=== PATIENT | female | born 1935 | race Caucasian/White ===

== ENCOUNTER 2021-01-12 09:26 | Inpatient (IN) | payer MEDICARE, MEDICAID ==
[~2021-01-12] VITALS: Ht 157.5 cm; Wt 53.5 kg
[2021-01-12] MEDS ORDERED: PIPERACILLIN/TAZOBACTAM 3.375GM/50ML PREMIX IV ONE (10:15)
[2021-01-12 10:27] LABS: HEMATOCRIT. 33.7 % (36.0-48.0); HEMOGLOBIN. 10.7 g/dL (12.0-16.0); MEAN CORPUSCULAR HEMOGLOBIN 25.7 pg (28.0-32.0); MEAN CORPUSCULAR VOLUME 81.3 fL (81.0-99.0); MEAN PLATELET VOLUME 7.2 fl (7.4-10.4); PLATELET 337 x1000/uL (130-400); RED BLOOD CELL COUNT 4.14 mill/uL (4.2-5.4); RED CELL DISTRIBUTION WIDTH 21.5 % (11.6-14.6)
[2021-01-12] MEDS ORDERED: PIPERACILLIN/TAZ 3.375G PREMIX 50 ML IV NR (10:30)
[2021-01-12 10:34] LABS: CHLORIDE 102 mEq/L (98-107)
[2021-01-12 13:57] LABS: PLATELET ESTIMATE NORMAL
[2021-01-12] MEDS ORDERED: [UNRECOGNIZED DRUG - REMARK] XX SCH (16:00)
[2021-01-12] MEDS ORDERED: VANCOMYCIN 1 G PREMIX 200 ML IV NR (17:00)
[2021-01-12] MEDS: PIPERACILLIN/TAZ 3.375G PREMIX 50 ML IV SCH (17:12)
[2021-01-12] MEDS ORDERED: MAGNESIUM/ALUMINUM HYDROXIDE/SIMETHICONE 30ML UDC PO PRN (18:30)
[2021-01-12] MEDS ORDERED: DIPHENHYDRAMINE 50MG/ML VIAL IV PRN (18:30)
[2021-01-12] MEDS ORDERED: CLONIDINE 0.1MG TABLET PO PRN (18:30)
[2021-01-12] MEDS ORDERED: ACETAMINOPHEN 325MG TABLET PO PRN ×2 (18:30)
[2021-01-12] MEDS ORDERED: ZOLPIDEM TARTRATE 5MG TABLET PO PRN (21:00)
[2021-01-12 21:18] LABS: CLARITY URINE CLOUDY (CLEAR); COLOR URINE YELLOW (YELLOW); KETONES URINE NEGATIVE (NEGATIVE); LEUKOCYTE ESTERASE URINE 2+ (NEGATIVE); NITRITE URINE NEGATIVE (NEGATIVE); OCCULT BLOOD URINE 2+ (NEGATIVE); PROTEIN URINE TRACE (NEGATIVE); SPECIFIC GRAVITY URINE 1.028 (1.005-1.030)
[2021-01-12] MEDS: SODIUM CHLORIDE 0.9% INJ 3ML FLUSH IVF SCH (22:00)
[2021-01-13] MEDS: PIPERACILLIN/TAZ 3.375G PREMIX 50 ML IV SCH (01:00)
[2021-01-13] MEDS: SODIUM CHLORIDE 0.9% INJ 3ML FLUSH IVF SCH ×3 (05:19→21:53)
[2021-01-13 05:35] LABS: BASOPHILS % 0.7 % (0.0-2.0); EOSINOPHILS % 0.9 % (0.0-5.0); HEMATOCRIT. 29.9 % (36.0-48.0); LYMPHOCYTES % 12.7 % (20.0-50.0); MEAN CORPUSCULAR HEMOGLOBIN 27.1 pg (28.0-32.0); MEAN CORPUSCULAR VOLUME 81.2 fL (81.0-99.0); MEAN PLATELET VOLUME 7.5 fl (7.4-10.4); MONOCYTES % 7.1 % (2.0-8.0); NEUTROPHILS % 78.6 % (40.0-76.0); PLATELET 325 x1000/uL (130-400); RED BLOOD CELL COUNT 3.69 mill/uL (4.2-5.4); RED CELL DISTRIBUTION WIDTH 21.2 % (11.6-14.6)
[2021-01-13 08:15] VITALS: BP 112/72
[2021-01-13] MEDS: PIPERACILLIN/TAZOBACTAM 2.25 G in DEXTROSE 5% WATER 50 ML IV SCH ×3 (09:59→21:53)
[2021-01-13] MEDS: VANCOMYCIN 750 MG PREMIX 150 ML IV SCH (10:45)
[2021-01-13] MEDS ORDERED: SERT-422 PO (11:34)
[2021-01-13 12:00] VITALS: BP 110/56
[2021-01-13] MEDS ORDERED: DONE5TAB33 MT (12:12)
[2021-01-13] MEDS ORDERED: CLIN300C12 PO (12:12)
[2021-01-13] MEDS ORDERED: PENT400T16 PO (12:12)
[2021-01-13] MEDS ORDERED: ATOR10TA69 PO (12:12)
[2021-01-13] MEDS ORDERED: LEVO75CA5 (12:12)
[2021-01-13] MEDS ORDERED: MEMA10TA55 PO (12:12)
[2021-01-13] MEDS ORDERED: FURO40TA5 PO (12:12)
[2021-01-13] MEDS ORDERED: HYDR-459 PO (12:12)
[2021-01-13] MEDS ORDERED: FERR325T6 MT (12:12)
[2021-01-13] MEDS ORDERED: TRAM50TA PO (12:12)
[2021-01-13] MEDS ORDERED: SULF-288 MT (12:12)
[2021-01-13] MEDS ORDERED: LOSA50TA41 PO (12:12)
[2021-01-13] MEDS ORDERED: PANT40TA51 PO (12:12)
[2021-01-13] MEDS ORDERED: FAMO40TA7 PO (12:12)
[2021-01-13 16:00] VITALS: BP 102/54
[2021-01-13 20:00] VITALS: BP 102/58
[2021-01-14] VITALS: BP 90/48
[2021-01-14 04:00] VITALS: BP 124/83
[2021-01-14] MEDS: SODIUM CHLORIDE 0.9% INJ 3ML FLUSH IVF SCH ×3 (05:53→21:10)
[2021-01-14] MEDS: PIPERACILLIN/TAZOBACTAM 2.25 G in DEXTROSE 5% WATER 50 ML IV SCH ×3 (05:53→15:44)
[2021-01-14] MEDS: VANCOMYCIN 750 MG PREMIX 150 ML IV SCH (05:53)
[2021-01-14 08:00] VITALS: BP 101/55
[2021-01-14] MEDS ORDERED: DIATR MEGLU/DIATRIZOATE SOLN 120ML ONE (09:27)
[2021-01-14 12:00] VITALS: BP 117/68
[2021-01-14 16:00] VITALS: BP 114/65
[2021-01-14] MEDS: MEROPENEM 1,000 MG in SODIUM CHLORIDE 0.9% 100 ML IV SCH ×2 (17:25→21:10)
[2021-01-14 20:00] VITALS: BP 116/75
[2021-01-15] VITALS (22 sets, daily range): BP systolic 106–164; BP diastolic 63–99
[2021-01-15] MEDS: MEROPENEM 1,000 MG in SODIUM CHLORIDE 0.9% 100 ML IV SCH ×2 (06:58→18:16)
[2021-01-15] MEDS: SODIUM CHLORIDE 0.9% INJ 3ML FLUSH IVF SCH ×2 (06:59→14:00)
[2021-01-15 10:08] LABS: INR 1.1; PROTHROMBIN TIME 11.9 sec (9.6-11.0)
[2021-01-15] MEDS ORDERED: LIDOCAINE HCL 1% 20ML VIAL (Pyxis) INJ ONE (10:08)
[2021-01-15] MEDS ORDERED: SODIUM BICARBONATE 4% (2.4MEQ) 5ML VIAL IV ONE (10:08)
[2021-01-15] MEDS ORDERED: FENTANYL CITRATE/PF 50MCG/ML 2ML VIAL ONE (10:40)
[2021-01-16] VITALS: BP 131/82
[2021-01-16] MEDS: MEROPENEM 1,000 MG in SODIUM CHLORIDE 0.9% 100 ML IV SCH ×4 (01:46→21:58)
[2021-01-16 04:00] VITALS: BP 127/7
[2021-01-16 08:00] VITALS: BP 128/74
[2021-01-16 12:00] VITALS: BP 109/58
[2021-01-16 16:00] VITALS: BP 119/74
[2021-01-16 20:00] VITALS: BP 111/64
[2021-01-16] MEDS: SODIUM CHLORIDE 0.9% INJ 3ML FLUSH IVF SCH (21:57)
[2021-01-17] VITALS: BP 111/69
[2021-01-17 04:00] VITALS: BP 111/71
[2021-01-17] MEDS: MEROPENEM 1,000 MG in SODIUM CHLORIDE 0.9% 100 ML IV SCH ×3 (05:18→21:45)
[2021-01-17] MEDS: SODIUM CHLORIDE 0.9% INJ 3ML FLUSH IVF SCH ×3 (05:18→21:45)
[2021-01-17 06:51] LABS: HEMATOCRIT. 34.8 % (36.0-48.0); HEMOGLOBIN. 11.2 g/dL (12.0-16.0); MEAN CORPUSCULAR HEMOGLOBIN 26.9 pg (28.0-32.0); MEAN CORPUSCULAR VOLUME 83.2 fL (81.0-99.0); PLATELET 302 x1000/uL (130-400); RED BLOOD CELL COUNT 4.18 mill/uL (4.2-5.4)
[2021-01-17 07:32] LABS: CHLORIDE 109 mEq/L (98-107)
[2021-01-17 08:00] VITALS: BP 122/57
[2021-01-17 12:00] VITALS: BP 121/78
[2021-01-17 16:00] VITALS: BP 105/62
[2021-01-17 20:00] VITALS: BP 129/64
[2021-01-17 21:10] LABS: PLATELET ESTIMATE NORMAL
[2021-01-18] VITALS (7 sets, daily range): BP systolic 93–130; BP diastolic 43–95
[2021-01-18] MEDS: SODIUM CHLORIDE 0.9% INJ 3ML FLUSH IVF SCH ×3 (06:00→21:13)
[2021-01-18] MEDS: MEROPENEM 1,000 MG in SODIUM CHLORIDE 0.9% 100 ML IV SCH ×3 (06:31→21:02)
[2021-01-18] MEDS ORDERED: LIDOCAINE HCL 1% 20ML VIAL (Pyxis) INJ ONE (07:45)
[2021-01-18] MEDS: LEVOTHYROXINE SODIUM 100MCG TABLET PO SCH (16:53)
[2021-01-18] MEDS: SODIUM CHLORIDE 0.9% 1,000 ML IV SCH ×2 (18:57→21:12)
[2021-01-18] MEDS: PANTOPRAZOLE SODIUM 40 MG/VIAL IV SCH (21:02)
[2021-01-19] VITALS: BP 124/70
[2021-01-19 04:00] VITALS: BP 119/67
[2021-01-19] MEDS: MEROPENEM 1,000 MG in SODIUM CHLORIDE 0.9% 100 ML IV SCH ×3 (06:01→21:49)
[2021-01-19] MEDS: SODIUM CHLORIDE 0.9% INJ 3ML FLUSH IVF SCH ×2 (06:02→21:51)
[2021-01-19] MEDS: LEVOTHYROXINE SODIUM 100MCG TABLET PO SCH (06:08)
[2021-01-19 08:00] VITALS: BP 130/60
[2021-01-19 09:23] LABS: CHLORIDE 111 mEq/L (98-107)
[2021-01-19 09:32] LABS: HEMATOCRIT. 28.7 % (36.0-48.0); MEAN CORPUSCULAR HEMOGLOBIN 27.1 pg (28.0-32.0); MEAN CORPUSCULAR VOLUME 82.6 fL (81.0-99.0); MEAN PLATELET VOLUME 8.1 fl (7.4-10.4); PLATELET 243 x1000/uL (130-400); RED BLOOD CELL COUNT 3.47 mill/uL (4.2-5.4); RED CELL DISTRIBUTION WIDTH 22.2 % (11.6-14.6)
[2021-01-19 09:40] LABS: HEMOGLOBIN. 9.4 g/dL (12.0-16.0)
[2021-01-19] MEDS: PANTOPRAZOLE SODIUM 40 MG/VIAL IV SCH ×2 (10:05→19:00)
[2021-01-19] MEDS: SODIUM CHLORIDE 0.9% 1,000 ML IV SCH (11:43)
[2021-01-19 12:00] VITALS: BP 116/71
[2021-01-19 16:00] VITALS: BP 120/66
[2021-01-19] MEDS ORDERED: ONDANSETRON HCL 4MG/2ML INJ IV PRN (17:45)
[2021-01-19 19:25] LABS: PLATELET ESTIMATE NORMAL
[2021-01-19 20:00] VITALS: BP 101/55
[2021-01-19 20:28] LABS: HEMATOCRIT 29.5 % (36.0-48.0); HEMOGLOBIN 9.6 g/dL (12.0-16.0)
[2021-01-19 20:51] LABS: TOTAL IRON BINDING CAPACITY 149 ug/dL (250-450)
[2021-01-20] VITALS: BP 121/74
[2021-01-20] MEDS: SODIUM CHLORIDE 0.9% 1,000 ML IV SCH ×3 (00:56→20:34)
[2021-01-20 04:00] VITALS: BP 124/73
[2021-01-20 05:51] LABS: CHLORIDE 111 mEq/L (98-107)
[2021-01-20 06:07] LABS: HEMATOCRIT 34.7 % (36.0-48.0); HEMOGLOBIN 11.1 g/dL (12.0-16.0); MEAN CORPUSCULAR HEMOGLOBIN 26.9 pg (28.0-32.0); PLATELET 249 x1000/uL (130-400); RED BLOOD CELL COUNT 4.14 mill/uL (4.2-5.4); RED CELL DISTRIBUTION WIDTH 22.6 % (11.6-14.6)
[2021-01-20] MEDS: MEROPENEM 1,000 MG in SODIUM CHLORIDE 0.9% 100 ML IV SCH ×3 (06:20→22:44)
[2021-01-20] MEDS: LEVOTHYROXINE SODIUM 100MCG TABLET PO SCH (06:23)
[2021-01-20] MEDS: SODIUM CHLORIDE 0.9% INJ 3ML FLUSH IVF SCH ×3 (06:48→22:44)
[2021-01-20 08:00] VITALS: BP 124/78
[2021-01-20] MEDS: PANTOPRAZOLE SODIUM 40 MG/VIAL IV SCH ×2 (09:48→17:56)
[2021-01-20 12:00] VITALS: BP 127/77
[2021-01-20] MEDS: FERROUS SULFATE 325MG TABLET PO SCH ×2 (13:25→17:56)
[2021-01-20] MEDS: FOLIC ACID 1MG TABLET PO SCH (13:25)
[2021-01-20 16:00] VITALS: BP 118/62
[2021-01-20 20:00] VITALS: BP 122/71
[2021-01-20] MEDS: ASCORBIC ACID 500 MG TABLET PO SCH (20:34)
[2021-01-21] VITALS: BP 123/60
[2021-01-21 04:00] VITALS: BP 115/71
[2021-01-21] MEDS: SODIUM CHLORIDE 0.9% INJ 3ML FLUSH IVF SCH ×3 (06:43→21:54)
[2021-01-21] MEDS: SODIUM CHLORIDE 0.9% 1,000 ML IV SCH ×2 (06:43→16:45)
[2021-01-21] MEDS: MEROPENEM 1,000 MG in SODIUM CHLORIDE 0.9% 100 ML IV SCH ×3 (06:43→21:54)
[2021-01-21] MEDS: LEVOTHYROXINE SODIUM 100MCG TABLET PO SCH (06:43)
[2021-01-21 08:00] VITALS: BP 119/51
[2021-01-21] MEDS: ASCORBIC ACID 500 MG TABLET PO SCH ×2 (08:13→21:00)
[2021-01-21] MEDS: PANTOPRAZOLE SODIUM 40 MG/VIAL IV SCH ×2 (08:13→16:52)
[2021-01-21] MEDS: FOLIC ACID 1MG TABLET PO SCH (08:13)
[2021-01-21] MEDS: FERROUS SULFATE 325MG TABLET PO SCH ×3 (08:14→16:52)
[2021-01-21 12:00] VITALS: BP 101/47
[2021-01-21 16:00] VITALS: BP 113/63
[2021-01-21 20:00] VITALS: BP 117/61
[2021-01-22] VITALS (7 sets, daily range): BP systolic 95–114; BP diastolic 53–66
[2021-01-22] MEDS: LEVOTHYROXINE SODIUM 100MCG TABLET PO SCH (06:29)
[2021-01-22] MEDS: MEROPENEM 1,000 MG in SODIUM CHLORIDE 0.9% 100 ML IV SCH ×2 (06:29→13:23)
[2021-01-22] MEDS: SODIUM CHLORIDE 0.9% INJ 3ML FLUSH IVF SCH ×2 (06:29→13:23)
[2021-01-22] MEDS ORDERED: PANTOPRAZOLE 40MG DR TABLET PO SCH (07:20)
[2021-01-22] MEDS: FOLIC ACID 1MG TABLET PO SCH (08:51)
[2021-01-22] MEDS: FERROUS SULFATE 325MG TABLET PO SCH ×3 (08:51→16:57)
[2021-01-22] MEDS: ASCORBIC ACID 500 MG TABLET PO SCH (08:51)
[2021-01-22] MEDS ORDERED: IOHEXOL-300 50 ML BOTTLE IV ONE (15:13)
[2021-01-23] VITALS: BP 113/60
[2021-01-23 04:00] VITALS: BP 107/56
== END 2021-01-22 20:15 | disposition home health service (06) | DRG 579 ==
LOC: ER 09:58 → EDBD 11:02 → MICUSO 11:02 → 6EST 01-13 07:07
PROVIDERS: ADMIT Internal Medicine; ATTEND Internal Medicine
PROC: 0W9F0ZZ Drainage of Abdominal Wall, Open Approach (ICD-10-PCS; principal; 2021-01-12)
PROC: 0W9J3ZZ Drainage of Pelvic Cavity, Percutaneous Approach (ICD-10-PCS; 2021-01-15)
PROC: 02HV33Z Insertion of Infusion Device into Superior Vena Cava, Percutaneous Approach (ICD-10-PCS; 2021-01-18)
PROC: B548ZZA Ultrasonography of Superior Vena Cava, Guidance (ICD-10-PCS; 2021-01-18)
DX: L02.211 Cutaneous abscess of abdominal wall (principal); K29.71 Gastritis, unspecified, with bleeding; N39.0 Urinary tract infection, site not specified; K61.1 Rectal abscess; Z16.12 Extended spectrum beta lactamase (ESBL) resistance; K40.90 Unilateral inguinal hernia, without obstruction or gangrene, not specified as recurrent; K43.9 Ventral hernia without obstruction or gangrene; K44.9 Diaphragmatic hernia without obstruction or gangrene; I25.10 Atherosclerotic heart disease of native coronary artery without angina pectoris; Z20.822 Contact with and (suspected) exposure to COVID-19; E03.9 Hypothyroidism, unspecified; B96.20 Unspecified Escherichia coli [E. coli] as the cause of diseases classified elsewhere; K57.30 Diverticulosis of large intestine without perforation or abscess without bleeding; N73.9 Female pelvic inflammatory disease, unspecified; Z90.49 Acquired absence of other specified parts of digestive tract
CPT/HCPCS: 36415; 36573; 71045; 74176; 76857; 77012; 80048; 80076; 81003; 82607; 82728; 82746; 83036; 83540; 83550; 83605; 84145; 84443; 84484; 85014; 85018; 85025; 85027; 85651; 86140; 87070; 87075; 87077; 87186; 87426; 93005; 96365; 99152; 99153; 99285; A6261; C1725; C1729; C1769; C9113; J1200; J2185; J2543; J3010; J3370; J3490; J7030; J7040; J7050; J7060; Q9963; Q9967; G0500

== ENCOUNTER 2023-12-10 08:44 | Emergency (ER) | payer MEDICARE, MEDICAID ==
[~2023-12-10] VITALS: Ht 152.4 cm; Wt 55.0 kg
[~2023-12-10 08:44] MED LIST: ATOR10TA69 PO; CLIN-194 PO; DONE5TAB33 MT; FAMO40TA7 PO; FERR325T6 MT; FURO40TA5 PO; HYDR-459 PO; LEVO75CA5; LOSA50TA41 PO; MEMA10TA55 PO; PANT40TA51 PO; PENT400T16 PO; SERT-422 PO; SULF-13 MT; TRAM50TA PO
[2023-12-10 08:49] VITALS: BP 114/71; PULSE 60; RESP 16; O2SAT 96
== END 2023-12-10 13:12 | disposition home or self-care (01) ==
LOC: ER 08:51
DX: S72.111A Displaced fracture of greater trochanter of right femur, initial encounter for closed fracture (principal); Z98.890 Other specified postprocedural states; W01.0XXA Fall on same level from slipping, tripping and stumbling without subsequent striking against object, initial encounter; Y93.89 Activity, other specified; Y92.89 Other specified places as the place of occurrence of the external cause; Y99.8 Other external cause status
CPT/HCPCS: 71045; 72170; 99284

== ENCOUNTER 2023-12-11 08:07 | Emergency (ER) | payer MEDICARE, MEDICAID ==
[~2023-12-11] VITALS: Ht 160 cm; Wt 52.0 kg
[2023-12-11 08:10] VITALS: O2SAT 99
[2023-12-11 08:52] LABS: HEMATOCRIT 37.9 % (36.0-48.0); HEMOGLOBIN 12.5 g/dL (12.0-16.0); MEAN CORPUSCULAR HGB CONC 33.1 g/dL (31.0-37.0); MEAN CORPUSCULAR VOLUME 96.5 fL (81.0-99.0); PLATELET 191 x1000/uL (130-400); RED BLOOD CELL COUNT 3.92 mill/uL (4.2-5.4); RED CELL DISTRIBUTION WIDTH 15.8 % (11.6-14.6); WHITE BLOOD COUNT 5.3 x1000/uL (4.5-11.0)
[2023-12-11 09:07] LABS: CALCIUM 8.8 mg/dL (8.7-10.4); CARBON DIOXIDE 27 mEq/L (21-32); CHLORIDE 110 mEq/L (98-107); CREATINE KINASE 89 IU/L (34-145); CREATININE 0.8 mg/dL (0.6-1.0); GLUCOSE 87 mg/dL (70-105); POTASSIUM 4.1 mEq/L (3.5-5.1); SODIUM 140 mEq/L (136-145); UREA NITROGEN BLOOD 27 mg/dL (9-23)
[2023-12-11 13:50] VITALS: BP 150/85; PULSE 58; RESP 14; TEMP 98.1
== END 2023-12-11 13:56 | disposition home or self-care (01) ==
LOC: ER 08:07
DX: R29.6 Repeated falls (principal); Z79.899 Other long term (current) drug therapy
CPT/HCPCS: 36415; 71045; 72170; 80048; 82550; 85027; 99284

== ENCOUNTER 2024-02-04 12:22 | Inpatient (IN) | payer MEDICARE, MEDICAID ==
[~2024-02-04] VITALS: Ht 152.4 cm; Wt 56.2 kg
[2024-02-04 12:40] VITALS: O2SAT 98
[2024-02-04 14:20] LABS: BASOPHILS % 0.3 % (0.0-2.0); EOSINOPHILS % 2.1 % (0.0-5.0); HEMATOCRIT. 39.7 % (36.0-48.0); HEMOGLOBIN. 13.3 g/dL (12.0-16.0); LYMPHOCYTES % 7.7 % (20.0-50.0); MEAN CORPUSCULAR HEMOGLOBIN 32.2 pg (28.0-32.0); MEAN CORPUSCULAR HGB CONC 33.5 g/dL (31.0-37.0); MEAN CORPUSCULAR VOLUME 96.1 fL (81.0-99.0); MEAN PLATELET VOLUME 8.4 fl (7.4-10.4); MONOCYTES % 7.6 % (2.0-8.0); NEUTROPHILS % 82.3 % (40.0-76.0); PLATELET 242 x1000/uL (130-400); RED BLOOD CELL COUNT 4.13 mill/uL (4.2-5.4); RED CELL DISTRIBUTION WIDTH 15.1 % (11.6-14.6); WHITE BLOOD COUNT 5.7 x1000/uL (4.5-11.0)
[2024-02-04 14:34] LABS: ALANINE AMINOTRANSFERASE 10 IU/L (10-49); ASPARTATE AMINOTRANSFERASE 20 IU/L (<34); BILIRUBIN TOTAL 0.4 mg/dL (0.1-1.0); CARBON DIOXIDE 28 mEq/L (21-32); CHLORIDE 106 mEq/L (98-107); CREATINE KINASE 57 IU/L (34-145); CREATININE 0.9 mg/dL (0.6-1.0); GLUCOSE 114 mg/dL (70-105); POTASSIUM 4.1 mEq/L (3.5-5.1); PROTEIN TOTAL 7.1 g/dL (6.0-8.3); SODIUM 140 mEq/L (136-145); TROPONIN I HIGH SENSITIVITY 4 ng/L (3.0-34); UREA NITROGEN BLOOD 18 mg/dL (9-23)
[2024-02-04] MEDS: HYDROCODONE/ACETAMINOPHEN 5/325MG TABLET PO ONE (15:55)
[2024-02-04 17:26] LABS: TROPONIN I HIGH SENSITIVITY 5 ng/L (3.0-34)
[2024-02-05 11:25] VITALS: BP 130/65; PULSE 67; RESP 18; TEMP 98.1
[2024-02-05 11:30] VITALS: BP 130/65; PULSE 67; RESP 18; TEMP 98.1
[2024-02-05] MEDS ORDERED: ACETAMINOPHEN 325MG TABLET PO PRN (13:15)
[2024-02-05] MEDS ORDERED: ONDANSETRON HCL 4MG/2ML INJ IV PRN (13:15)
[2024-02-05] MEDS: FUROSEMIDE 40MG TABLET PO SCH (13:45)
[2024-02-05 16:34] VITALS: BP 121/65; PULSE 77; RESP 18; TEMP 97.2
[2024-02-05 18:54] LABS: HEPATITIS B SURFACE ANTIGEN NEGATIVE (Negative); HEPATITIS C AB NON REACTIVE (Neg) (Negative)
[2024-02-05 20:00] VITALS: BP 120/66; PULSE 88; RESP 20; TEMP 98.2
[2024-02-06] VITALS: BP 122/68; PULSE 90; RESP 20; TEMP 98.6
[2024-02-06 04:00] VITALS: BP 123/68; PULSE 88; RESP 20; TEMP 98.6
[2024-02-06] MEDS: LEVOTHYROXINE SODIUM 75MCG TABLET PO SCH (07:52)
[2024-02-06 08:00] VITALS: BP 123/45; PULSE 71; RESP 18; TEMP 98.6
[2024-02-06 12:00] VITALS: BP 114/61; PULSE 77; RESP 20; TEMP 97.7
[2024-02-06 16:00] VITALS: PULSE 78; RESP 20; TEMP 97.7
[2024-02-06 20:00] VITALS: BP 110/68; PULSE 79; RESP 20; TEMP 97
[2024-02-07] VITALS: BP 122/80; PULSE 85; RESP 20; TEMP 98.6
[2024-02-07 04:00] VITALS: BP 111/60; PULSE 68; RESP 20; TEMP 98.6
[2024-02-07 08:04] VITALS: BP 106/56; PULSE 68; RESP 20; TEMP 98.2
[2024-02-07 11:02] LABS: CLARITY URINE CLEAR (CLEAR); COLOR URINE DARK YELLOW (YELLOW); GLUCOSE URINE NEGATIVE (NEGATIVE); KETONES URINE NEGATIVE (NEGATIVE); LEUKOCYTE ESTERASE URINE 2+ (NEGATIVE); NITRITE URINE NEGATIVE (NEGATIVE); OCCULT BLOOD URINE NEGATIVE (NEGATIVE); PH URINE 5.5 (4.5-8.0); PROTEIN URINE NEGATIVE (NEGATIVE); SPECIFIC GRAVITY URINE 1.027 (1.005-1.030)
[2024-02-07] MEDS: PNEUMOCOCCAL 23-VAL P-SAC VAC 0.5 ML IM ONE (12:02)
[2024-02-07] MEDS: INFLUENZA VACCINE 05/PF 0.5 ML SYRINGE IM ONE (12:04)
[2024-02-07 12:12] LABS: COARSE GRANULAR CASTS URINE 0-5 /lpf; FINE GRANULAR CASTS URINE 0-5 /lpf
[2024-02-07 12:13] LABS: MUCUS URINE 3+ /lpf (< = 2+); SQUAMOUS EPITHELIAL CELL URINE FEW /lpf (RARE/1+)
[2024-02-07 12:14] LABS: CALCIUM OXALATE CRYSTALS URINE 1+ /lpf
[2024-02-07 12:15] LABS: BACTERIA URINE 2+
[2024-02-07 12:19] VITALS: BP 116/58; PULSE 78; RESP 18; TEMP 97.8
== END 2024-02-07 12:40 | disposition home or self-care (01) | DRG 562 ==
LOC: ER 12:22 → 8WST 16:51 → EDBEDREQTM 17:00 → EDBEDREQ 17:00 → 8WST 02-06 00:36
PROVIDERS: ADMIT Internal Medicine; ATTEND Internal Medicine
DX: S62.92XA Unspecified fracture of left hand, initial encounter for closed fracture (principal); G82.50 Quadriplegia, unspecified; I50.43 Acute on chronic combined systolic (congestive) and diastolic (congestive) heart failure; G93.41 Metabolic encephalopathy; F03.90 Unspecified dementia, unspecified severity, without behavioral disturbance, psychotic disturbance, mood disturbance, and anxiety; E03.9 Hypothyroidism, unspecified; M21.371 Foot drop, right foot; M47.812 Spondylosis without myelopathy or radiculopathy, cervical region; M21.372 Foot drop, left foot; M85.80 Other specified disorders of bone density and structure, unspecified site; X58.XXXA Exposure to other specified factors, initial encounter; R13.10 Dysphagia, unspecified; Y93.89 Activity, other specified; Y92.89 Other specified places as the place of occurrence of the external cause; Y99.8 Other external cause status; R53.81 Other malaise; R26.9 Unspecified abnormalities of gait and mobility; I11.0 Hypertensive heart disease with heart failure; Z91.81 History of falling
CPT/HCPCS: 36415; 71045; 73080; 73110; 73120; 80053; 81003; 82550; 83880; 84484; 85025; 86705; 87340; 90686; 90732; 92523; 92610; 93005; 93306; 97112; 97162; 97166; 99285